=== PATIENT | male | born 1935 | race Caucasian/White ===

== ENCOUNTER → 2016-06-14 | Outpatient (CLI) | payer MEDICARE ==
[~2016-06-14] MED LIST: ANTI1CAP2 PO; LOVA10TA2 PO; MULT-933 PO; POTA10TA16 PO; RIVA20TA PO
[2016-06-14 14:09] LABS: BASOPHILS % (AUTO) 0.4 % (0-2); EOSINOPHILS # (AUTO) 0.1 T/MM3 (0-0.5); EOSINOPHILS % (AUTO) 1.8 % (0-4); HGB - HEMOGLOBIN 11.8 GM/DL (13.5-17.5); IMMATURE GRANULOCYTE # (AUTO) 0.01 T/MM3 (0.00-0.03); IMMATURE GRANULOCYTE % (AUTO) 0.1 % (0.0-0.5); LYMPHOCYTES # (AUTO) 1.9 T/MM3 (1-4.8); LYMPHOCYTES % (AUTO) 24.4 % (23-45); MEAN CORPUSCULAR HGB 34.5 UUG (26-34); MEAN CORPUSCULAR HGB CONC(MCHC 34.7 GM/DL (31-37); MEAN CORPUSCULAR VOLUME 99.4 UM3 (80-100); MEAN PLATELET VOLUME 9.5 UM3 (9.4-12.4); MONOCYTES % (AUTO) 12.3 % (0-9.0); NEUTROPHILS #(AUTO)-ABSOLUTE 4.7 T/MM3 (1.8-7.7); RED BLOOD COUNT 3.42 M/MM3 (4.50-5.90); WBC - WHITE BLOOD COUNT 7.8 T/MM3 (4.5-11.0)
[2016-06-14 14:38] LABS: ALBUMIN 4.2 G/DL (3.5-5.0); ALBUMIN/GLOBULIN RATIO 1.4 RATIO (1.1-2.2); ALKALINE PHOSPHATASE 51 U/L (38-126); ALT (SGPT) 37 U/L (21-72); ANION GAP 14 MEQ/L (5-15); AST (SGOT) 24 U/L (17-59); BUN/CREATININE RATIO 20 RATIO (6-26); CALCIUM 9.8 MG/DL (8.4-10.2); CHLORIDE 107 MEQ/L (98-107); CO2 - CARBON DIOXIDE 26 MEQ/L (22-30); GLOMERULAR FILTRATION RATE 72; GLUCOSE 100 MG/DL (75-110); SODIUM 147 MEQ/L (134-144); TOTAL PROTEIN 7.2 G/DL (6.3-8.2)
== END ==
LOC: LAB 13:41
PROVIDERS: ATTEND Radiology Radiation Oncology
DX: C61 Malignant neoplasm of prostate (principal)
CPT/HCPCS: 36415; 80053; 84153; 85025

== ENCOUNTER → 2016-06-25 | Outpatient (CLI) | payer MEDICARE ==
[~2016-06-25] MED LIST changes: +IOHEXOL 300 MG/ML 100ml INJECTION ONE; +NORMAL SALINE 100 ML ONE; +SALINE FLUSH 10ml SYRINGE ONE
[2016-06-25 10:01] LABS: BASOPHILS % (AUTO) 0.5 % (0-2); EOSINOPHILS # (AUTO) 0.1 T/MM3 (0-0.5); EOSINOPHILS % (AUTO) 1.7 % (0-4); HCT - HEMATOCRIT 35.2 % (41-53); IMMATURE GRANULOCYTE # (AUTO) 0.01 T/MM3 (0.00-0.03); IMMATURE GRANULOCYTE % (AUTO) 0.2 % (0.0-0.5); LYMPHOCYTES # (AUTO) 1.9 T/MM3 (1-4.8); LYMPHOCYTES % (AUTO) 29.6 % (23-45); MEAN CORPUSCULAR HGB 33.5 UUG (26-34); MEAN CORPUSCULAR HGB CONC(MCHC 34.1 GM/DL (31-37); MEAN CORPUSCULAR VOLUME 98.3 UM3 (80-100); MEAN PLATELET VOLUME 9.6 UM3 (9.4-12.4); MONOCYTES # (AUTO) 0.9 T/MM3 (0-0.8); MONOCYTES % (AUTO) 14.3 % (0-9.0); NEUTROPHILS #(AUTO)-ABSOLUTE 3.4 T/MM3 (1.8-7.7); NEUTROPHILS % (AUTO) 53.7 % (33-66); RED BLOOD COUNT 3.58 M/MM3 (4.50-5.90); WBC - WHITE BLOOD COUNT 6.4 T/MM3 (4.5-11.0)
[2016-06-25 10:18] LABS: ALBUMIN 4.4 G/DL (3.5-5.0); ALBUMIN/GLOBULIN RATIO 1.4 RATIO (1.1-2.2); ALKALINE PHOSPHATASE 49 U/L (38-126); ALT (SGPT) 34 U/L (21-72); ANION GAP 14 MEQ/L (5-15); AST (SGOT) 23 U/L (17-59); BUN/CREATININE RATIO 23 RATIO (6-26); CALCIUM 9.5 MG/DL (8.4-10.2); CHLORIDE 105 MEQ/L (98-107); CO2 - CARBON DIOXIDE 27 MEQ/L (22-30); GLOMERULAR FILTRATION RATE 72; GLUCOSE 125 MG/DL (75-110); POTASSIUM 3.8 MEQ/L (3.6-5); SODIUM 146 MEQ/L (134-144); TOTAL PROTEIN 7.5 G/DL (6.3-8.2)
--- NOTE | 2016-06-25 12:10 | DI ---
Indication: ITS.REASON: C61 PROSTATE PROCEDURE: CT CHEST/ABD/PELVIS WC: Encounter: Subsequent Comparison: CT chest, abdomen and pelvis dated March 31, 2015 Technique: Axial CT images were performed through the chest, abdomen and pelvis after the administration of intravenous contrast. Coronal and sagittal two-dimensional reformats. Automated Exposure Control and Iterative Reconstruction dose reducing techniques were utilized. Contrast: Omnipaque 300 100 mL Findings: Chest: Mild scarring in the lung bases. No consolidative pneumonia, pleural effusion or pneumothorax. No new or worrisome pulmonary nodule or mass. The central airways are patent. No axillary or mediastinal adenopathy by CT size criteria. Prior CABG. Heart size is stable. No pericardial effusion. Abdomen/pelvis: The liver appears normal. Previously repaired abdominal aneurysm. The gallbladder is decompressed. The spleen, fatty replaced pancreas and adrenal glands are within normal limits. There is stable mild left hydronephrosis which appears to be be due to ureteropelvic junction obstruction. This is unchanged. There is abrupt transition from dilated left renal pelvis to nondilated proximal ureter at the crossing of the renal artery and vein. No mesenteric or retroperitoneal adenopathy. Canal prosthesis noted. Bladder is within normal limits. No free fluid. No evidence of a bowel obstruction. Bone windows show no lytic or blastic osseous lesions. Impression: 1. Stable exam without evidence of metastatic disease in the chest, abdomen or pelvis. 2. 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 .
--- NOTE | 2016-06-25 13:03 | DI ---
Indication: ITS.REASON: C61 PROSTATE CA PROCEDURE: NM BONE SCAN, WHOLE BODY: Encounter: Subsequent Comparison: Bone scan dated March 31, [address] chest, abdomen and pelvis from today Technique: 27.4 mCi of Tc-99m MDP was administered intravenously. Anterior and posterior planar whole-body and spot images were obtained. FINDINGS: The scan demonstrates the expected normal biodistribution for the radiotracer. Prior posttraumatic right rib uptake has nearly completely resolved. No new foci of tracer uptake. Prominent activity in the left renal pelvis again noted consistent with the probable UPJ obstruction seen on CT. There is no abnormal radiotracer uptake to suggest bony metastasis. IMPRESSION: No evidence of metastatic disease to the skeleton. .
== END ==
LOC: IMA 09:41
PROVIDERS: ATTEND Radiology Radiation Oncology
DX: C61 Malignant neoplasm of prostate (principal); N13.5 Crossing vessel and stricture of ureter without hydronephrosis
CPT/HCPCS: 36415; 71260; 74177; 78306; 80053; 84153; 85025; A9503; J7050; Q9967